=== PATIENT | male | born 1960 | race Caucasian/White ===

== ENCOUNTER 2016-08-18 23:50 | Observation (INO) | payer SELFPAY ==
--- NOTE | ~2016-08-18 | HP ---
History And Physical [facility] [address] [place]. [address] NAME: EDER ELKINS : 58 STATUS : ADM Karmen PAT#: [id number] AGE: 56 ADM/REG DATE : 08/18/16 MR#: [id number] REPORT SERV DATE: 08/19/16 DICTATED BY: GRUPO MULLIGAN DATE: 08/19/16 REPORT STATUS : Draft TRANSCRIBED BY: MODKhahn DATE: 08/19/16 DATE OF ADMISSION: 08/18/2016 POINT OF ENTRY: [facility] Emergency Department. PRIMARY CARE PHYSICIAN: None at this time. CHIEF COMPLAINT: Chest pain and shortness of breath. HISTORY OF PRESENT ILLNESS: Mr. Elkins is a 56-year-old gentleman with a history of active tobacco abuse as well as anxiety and history of panic attacks who presents to the emergency room today with reports of chest pain and shortness of breath. The patient states that he has "been sick since 2007." When asked to provide details, he states he has just been in a downward spiral since 2007. More specifically, he states that for the past four months he has had almost near constant left-sided chest tightness. He denies any radiation. It is associated with shortness of breath. He denies any alleviating or exacerbating factors. In the past week or two, he feels as if the chest tightness has been worsening, prompting his presentation to the emergency department. Initially, the patient reports shortness of breath with dyspnea on exertion, diffuse weakness, as well as overall fatigue. He denies any fevers, night sweats, chills, cough, sputum production, wheezing, abdominal pain, nausea, vomiting, diarrhea, constipation, dysuria, lower extremity edema, melena, hematochezia, hemoptysis, or hematemesis. REVIEW OF SYSTEMS: Comprehensive review of systems otherwise negative unless listed in history of present illness. Initial evaluation in the emergency department notable for EKG that was nonischemic. Troponin was negative. Chest x-ray is clear. Labs notable for a glucose of 233. Therefore, he was admitted to the Hospitalist Service for further evaluation and management. PREVIOUS MEDICAL HISTORY: 1. Active tobacco abuse. 2. Anxiety and panic attacks. SURGICAL HISTORY: 1. Tonsillectomy. 2. Hernia repair. ALLERGIES: CODEINE. HOME MEDICATIONS: None at this time. History And Physical [place] [place] [id number] [place]. [address] NAME: EDER ELKINS : 58 STATUS : ADM Karmen PAT#: [id number] AGE: 56 ADM/REG DATE : 08/18/16 MR#: [id number] REPORT SERV DATE: 08/19/16 DICTATED BY: GRUPO MULLIGAN DATE: 08/19/16 REPORT STATUS : Draft TRANSCRIBED BY: MODKhanh DATE: 08/19/16 SOCIAL HISTORY: He smokes about a half pack per day. Denies any alcohol or illicits. FAMILY MEDICAL HISTORY: Mother with diabetes. Father reportedly of natural causes. Siblings with history of lung cancer, coronary artery disease, and stroke. LABS AND IMAGIN. White count 4.5, hemoglobin 14.0, hematocrit is 40.6, and platelet count is 179. 2. Sodium is 140, potassium 3.8, chloride 106, carbon dioxide 25, BUN 14, creatinine 1.23, glucose is 233, calcium is 8.8, and magnesium is 2.1. 3. Troponin less than 0.02. 4. Chest x-ray per my review shows no acute cardiopulmonary abnormality but does show some hyperinflation and flattened diaphragms concerning for possible COPD. 5. EKG per my review shows normal sinus rhythm. No evidence of any acute ischemia or infarction. PHYSICAL EXAMINATION: VITAL SIGNS: Temperature is 99.5 degrees Fahrenheit, pulse is 108, respirations 16, saturating 97% on room air, and blood pressure is 131/84. On recheck, blood pressure is now 100/78, pulse of 97, respirations 16, and saturating 97% on room air. GENERAL: The patient is awake, alert, in no acute distress. Resting comfortably in bed. He is a male who appears older than stated age. HEENT: Atraumatic and normocephalic. Moist mucous membranes. Pupils are equal, round, reactive to light and accommodation. Extraocular eye movements are intact. No scleral icterus. NECK: No jugular venous distention. No carotid bruits. CARDIAC: Regular rate and rhythm. No murmurs, rubs, or gallops. Normal S1, S2. I am unable to reproduce any of his chest pain with palpation over the anterior chest or precordium. LUNGS: Clear to auscultation bilaterally. No wheezes, rhonchi, or crackles. Does have some prolonged respiratory phase and decreased breath sounds in the bases. ABDOMEN: Soft, nontender, nondistended with good bowel sounds. No rebound, guarding, or rigidity. EXTREMITIES: Warm and perfused. No cyanosis, clubbing, or edema. SKIN: Warm and dry. PSYCH: Affect appropriate. NEURO: Alert and oriented x3. Cranial nerves 2 through 12 grossly intact. Speech is normal. Gait not assessed. ASSESSMENT: Mr. Elkins is a 56-year-old gentleman who presents with a four-month history of almost near constant left-sided chest tightness with associated shortness of breath, consistent with likely atypical chest pain. PROBLEM LIST: 1. Chest pain, likely atypical. 2. Shortness of breath. 3. Hyperglycemia. 4. Active tobacco abuse. History And Physical [address] [address] NAME: EDER ELKINS : 58 STATUS : ADM Karmen PAT#: [id number] AGE: 56 ADM/REG DATE : 08/18/16 MR#: [id number] REPORT SERV DATE: 08/19/16 DICTATED BY: GRUPO MULLIGAN DATE: 08/19/16 REPORT STATUS : Draft TRANSCRIBED BY: WALDEMAR DATE: 08/19/16 5. History of anxiety and panic attacks. PLAN: 1. Chest pain, likely atypical. We will trend out cardiac enzymes and schedule patient for a stress test in the morning. Given reports of near constant chest pain for the past four months, suspect this is likely atypical chest pain. I do not appreciate any wheezing at this time, just that it is may be due to COPD exacerbation. His anxiety and history of panic attacks may also be playing a role. We will place the patient on an aspirin. Check hemoglobin A1c as well as fasting lipid panel. 2. Hyperglycemia. Checking hemoglobin A1c as well as placing the patient on level 1 insulin sliding scale. 3. Active tobacco abuse. Counseled the need for tobacco cessation. Nicotine replacement protocol. 4. Shortness of breath, likely multifactorial from the patient's active tobacco abuse as well as likely early onset COPD and emphysema. Chest x-ray is clear. He is saturating well on room air. We will follow up results of stress test. Provide some p.r.n. DuoNeb, but I do not appreciate any active wheezing at this time. 5. DVT prophylaxis. Lovenox subcu. CODE STATUS: The patient wished to be full code. [facility] Grupo Mulligan MD / [id number] CC: Mykel Segovia M.D.
--- NOTE | ~2016-08-18 | DS ---
Discharge Summary [facility] [address] [place]. [address] NAME: EDER ELKINS : 58 STATUS : DIS Karmen PAT#: [id number] AGE: 56 ADM/REG DATE : 08/18/16 MR#: [id number] REPORT SERV DATE: 08/20/16 DICTATED BY: FISH MARTINEZ DATE: 08/19/16 REPORT STATUS : Draft TRANSCRIBED BY: MODL DATE: 08/19/16 ADMISSION DATE: 08/18/2016 DISCHARGE DATE: 08/19/2016 DISCHARGE DIAGNOSES: Include: 1. Atypical chest pain. 2. Chronic obstructive pulmonary disease. 3. Shortness of breath. 4. Active tobacco use. 5. History of anxiety and panic attacks. 6. Mild hyperglycemia. Most recent hemoglobin A1c 5.7. DISCHARGE MEDICINES: Include nicotine patch 21 mg daily, Ventolin inhaler two puffs inhaled every four hours p.r.n. for shortness of breath, Celexa 10 mg daily, and either a Dulera 100/5 two puffs twice a day inhaler or a Symbicort 160/4.5 two puffs inhaled twice a day inhaler depending on the patient's financial feasibility of obtaining either inhaler. Case Management to assist with this. HISTORY OF PRESENT ILLNESS: A 56-year-old white male, who presented with chest pain and shortness of breath. Please see initial H and P of Dr. Rivera Epperson. The patient was admitted for observation to the Hospitalist Service for chest pain rule out. PROCEDURES AND IMAGING DURING THIS ADMISSION: Include a cardiac study of nuclear myocardial imaging that was overall low risk stress test. Says ejection fraction 47%. Recommending an outpatient echocardiogram. CONTINUATION OF HOSPITAL COURSE: Cardiac enzymes have been negative and the patient's symptoms have since resolved. He is not currently having any chest pain, only mild shortness of breath. He states upon interview that he has had problems with anxiety, fatigue, and panic attacks since 2007 and that he has been at times using a friend's Xanax to self-medicate. He has not had a true formal evaluation according to him since these symptoms began in 2007. He has not been on any prescription medicines or inhalers at that time either. I have discussed at length with the patient the need for establishing a primary care for prompt followup after discharge. We will place the patient on inhaler therapy with Ventolin and Symbicort or Dulera at this time. We will also add a low-dose Celexa for his anxiety and panic attacks. He had a hemoglobin A1c that was normal at 5.7, and for completeness sake, we will obtain a TSH during this admission and initiate treatment if it is abnormal. The patient has been advised repeatedly the need to quit smoking and advised repeatedly that he should not take other people's prescriptions. He is in agreement with this plan going forward, so he will be discharged home late this afternoon after case management has had an opportunity to help him with his medications and primary care followup. I have updated the patient and at bedside. [facility] Discharge Summary [place] [id number] [facility] [address] [place]. [address] NAME: EDER ELKINS : 58 STATUS : DIS Karmen PAT#: [id number] AGE: 56 ADM/REG DATE : 08/18/16 MR#: [id number] REPORT SERV DATE: 08/20/16 DICTATED BY: FISH MARTINEZ [facility] DATE: 08/19/16 REPORT STATUS : Draft TRANSCRIBED BY: WALDEMAR DATE: 08/19/16 Fish Martinez NP / [id number] CC: Mykel Segovia M.D.
[2016-08-18 21:45] LABS: BASOPHILS 0.2 %; BASOPHILS ABSOLUTE 0.01 10/3/uL (0.0-0.16); EOSINOPHILS 1.5 %; EOSINOPHILS ABSOLUTE 0.07 10/3/uL (0.0-0.53); HEMATOCRIT 40.6 % (40.0-51.0); HEMOGLOBIN 14.6 g/dL (13.6-17.8); IMMATURE GRANULOCYTES 0.2 %; IMMATURE GRANULOCYTES ABSOLUTE 0.01 10/3/uL (0.0-0.11); LYMPHOCYTES 27.6 %; LYMPHOCYTES ABSOLUTE 1.25 10/3/uL (0.67-4.30); MEAN CORPUSCULAR HEMOGLOB 33.1 pg (26.0-34.0); MEAN PLATELET VOLUME 11.1 fL (9.2-13.0); MONOCYTES 6.4 %; MONOCYTES ABSOLUTE 0.29 10/3/uL (0.21-1.20); NEUTROPHILS 64.1 %; PLATELET COUNT 179 10/3/uL (150-400); RBC DISTRIBUTION WIDTH 12.6 % (12.0-16.0); RED CELL COUNT 4.41 10/6/uL (4.7-6.1)
[2016-08-18 21:47] LABS: MANUAL DIFF NO %; MEAN CORPUSCULAR VOLUME 92.1 fL (80-100); WHITE BLOOD CELLS 4.5 10/3/uL (4.5-10.5)
[2016-08-18 21:55] LABS: INTERNATIONAL NORMAL RATI 1.2 UNITS (-); PROTIME (NOT ORD) 14.9 SEC (12.0-14.5)
[2016-08-18 21:56] LABS: PARTIAL THROMBO TIME 26.3 SEC (22.5-37.2)
[2016-08-18 22:02] LABS: BUN (BLOOD UREA NITROGEN) 14 MG/DL (6-23); CALCIUM, SERUM 8.8 MG/DL (8.5-10.4); CHEST PAIN PROFILE TAT 0 Hrs 21 Mins; CHLORIDE, SERUM 106 MMOL/L (96-112); CO2 (CARBON DIOXIDE) 25 MMOL/L (24-34); CREATININE 1.23 MG/DL (0.70-1.30); GFR AFRICAN AMERICAN 75 ML/MIN (>=60); GFR NON AFRICAN AMERICAN 65 ML/MIN (>=60); GLUCOSE, SERUM 233 MG/DL (60-99); POTASSIUM, SERUM 3.8 MMOL/L (3.5-5.3); SODIUM, SERUM 140 MMOL/L (135-148); TROPONIN I <0.02 NG/ML (<0.05)
[2016-08-19 06:37] LABS: CPK 91 U/L (0-200); TROPONIN I <0.02 NG/ML (<0.05)
[2016-08-19 07:33] LABS: CHOL/HDL RATIO(NOT ORDER) 4.2 (0-5); CHOLESTEROL 158 MG/DL (< 200); HDL CHOLESTEROL 38 MG/DL (> 39); LDL CHOLESTEROL 107 MG/DL (< 130); NON-HDL CHOLESTEROL 120 MG/DL (< 160); TRIGLYCERIDE 66 MG/DL (< 150)
[2016-08-19 11:20] LABS: CPK 88 U/L (0-200); POTASSIUM, SERUM 4.1 MMOL/L (3.5-5.3); TROPONIN I <0.02 NG/ML (<0.05)
[2016-08-19 11:24] LABS: CK-MB 0.8 NG/ML
[2016-08-19] MEDS ORDERED: VENTOLIN HFA INH (16:27)
[2016-08-19] MEDS ORDERED: CELEXA10 PO (16:27)
[2016-08-19] MEDS ORDERED: HABIT21 TOP (16:28)
[2016-08-19] MEDS ORDERED: SYMBICORT 160/41 INH INH (16:31)
== END 2016-08-19 16:52 | disposition home or self-care (01) ==
LOC: ER 23:50 → CDU1 23:59 → CDU2 08-19 03:15
PROVIDERS: Emergency Medicine; Internal Medicine
DX: R07.89 Other chest pain (principal); J44.9 Chronic obstructive pulmonary disease, unspecified; F41.9 Anxiety disorder, unspecified; F41.0 Panic disorder [episodic paroxysmal anxiety]; R73.9 Hyperglycemia, unspecified; Z90.89 Acquired absence of other organs
CPT/HCPCS: 71020; 78452; 80048; 80061; 82550; 82553; 83036; 83735; 84132; 84443; 84484; 85025; 85610; 85730; 93005; 93017; 96372; 96374; 96375; 99285; A9270-GY; A9502; G0378

== ENCOUNTER 2016-08-26 12:18 | Emergency (ER) | payer SELFPAY ==
[2016-08-26 11:19] LABS: BASOPHILS 0.1 %; BASOPHILS ABSOLUTE 0.01 10/3/uL (0.0-0.16); EOSINOPHILS 2.7 %; EOSINOPHILS ABSOLUTE 0.19 10/3/uL (0.0-0.53); HEMATOCRIT 41.4 % (40.0-51.0); HEMOGLOBIN 14.7 g/dL (13.6-17.8); IMMATURE GRANULOCYTES 0.1 %; IMMATURE GRANULOCYTES ABSOLUTE 0.01 10/3/uL (0.0-0.11); LYMPHOCYTES 26.8 %; MEAN CORPUS HGB CONC 35.5 g/dL (32.0-36.0); MEAN CORPUSCULAR HEMOGLOB 32.7 pg (26.0-34.0); MEAN PLATELET VOLUME 10.8 fL (9.2-13.0); MONOCYTES 7.9 %; MONOCYTES ABSOLUTE 0.56 10/3/uL (0.21-1.20); NEUTROPHILS 62.4 %; NEUTROPHILS ABSOLUTE 4.41 10/3/uL (2.02-8.40); PLATELET COUNT 188 10/3/uL (150-400); RBC DISTRIBUTION WIDTH 13.2 % (12.0-16.0)
[2016-08-26 11:20] LABS: MANUAL DIFF NO %; WHITE BLOOD CELLS 7.1 10/3/uL (4.5-10.5)
[2016-08-26 11:33] LABS: BUN (BLOOD UREA NITROGEN) 14 MG/DL (6-23); CALCIUM, SERUM 8.8 MG/DL (8.5-10.4); CHLORIDE, SERUM 106 MMOL/L (96-112); CO2 (CARBON DIOXIDE) 26 MMOL/L (24-34); CREATININE 1.11 MG/DL (0.70-1.30); GFR AFRICAN AMERICAN 85 ML/MIN (>=60); GFR NON AFRICAN AMERICAN 73 ML/MIN (>=60); GLUCOSE, SERUM 120 MG/DL (60-99); POTASSIUM, SERUM 4.5 MMOL/L (3.5-5.3); SODIUM, SERUM 141 MMOL/L (135-148)
[~2016-08-26 12:18] MED LIST: CELEXA10 PO; HABIT21 TOP; SYMBICORT 160/41 INH INH; VENTOLIN HFA INH
== END 2016-08-26 12:25 | disposition home or self-care (01) ==
LOC: ER 12:18
PROVIDERS: Nurse Practitioner
DX: I82.612 Acute embolism and thrombosis of superficial veins of left upper extremity (principal); J44.9 Chronic obstructive pulmonary disease, unspecified; F17.200 Nicotine dependence, unspecified, uncomplicated; Z88.5 Allergy status to narcotic agent; Z79.899 Other long term (current) drug therapy
CPT/HCPCS: 80048; 85025; 93971; 99284